=== PATIENT | female | born 1995 | race Caucasian/White ===

== ENCOUNTER 2022-11-29 04:46 | Inpatient (IN) | payer OTHER, SELFPAY ==
[2022-11-29] VITALS (164 sets, daily range): BP systolic 55–130; BP diastolic 21–98; PULSE 25–129; RESP 18; TEMP 35.9–36.6; O2SAT 78–100; BMI 34.5
[2022-11-29 06:10] LABS: Basophils Percent Auto 0.1 % (0.2-1.2); Eosinophils Absolute Auto 0.1 K/mm3 (0-0.3); Eosinophils Percent Auto 1.1 % (0-4.4); Hematocrit 32.9 % (37.0-47.0); Hemoglobin 10.7 g/dL (12.0-15.0); Immature Granulocyte Absolute 0.04 K/mm3 (0.00-0.031); Immature Granulocyte Percent A 0.4 % (0-0.5); Lymphocytes Absolute Auto 1.98 K/mm3 (0.9-3.2); Mean Corpuscular HGB Conc 32.5 g/dl (32-36); Mean Corpuscular Hemoglobin 27.9 pg (26-34); Mean Corpuscular Volume 85.9 fl (80-100); Mean Platelet Volume 9.7 fl (7.4-10.4); Monocytes Absolute Auto 0.6 K/mm3 (0.1-0.6); Monocytes Percent Auto 6.5 % (2.6-8.5); Neutrophils Absolute Auto 6.3 K/mm3 (1.3-6.7); Neutrophils Percent Auto 69.9 % (45.5-73.1); Platelet Count Result 244 k/mm3 (150-375); Red Blood Count 3.83 M/mm3 (4.2-5.4); Red Cell Distribution Width 13.2 % (11.5-14.5)
[2022-11-29] MEDS: OXYTOCIN 30 UNITS/NS 500 ML 30 UNITS/500 ML BAG IV CONT (06:24)
[2022-11-29] MEDS: LACTATED RINGERS 1,000 ML 125 ML IV CONT ×6 (06:24→16:09)
--- NOTE | 2022-11-29 06:54 | LDADM ---
This patient, Maylin Grey, was admitted to Labor/Delivery/Recovery 106 on 11/29/22 at 04:46. Plans for labor, pain management and were discussed with patient. Patient/family oriented to hospital policies and general routines including ID bracelet, bed and alarms, visiting hours, pain management, procedures, bathroom and other care routines, personal items, smoking policy, room service/diet and guest tray routines, security routines, and visiting hours. Patient/Family are encouraged to report perceived risks to care and to ask questions if they do not understand what they are told or what they should do. See OBIX for further documentation.
[2022-11-29 07:06] LABS: Rubella IgG Antibody 30.3 IU/ML
[2022-11-29 07:07] LABS: HIV 1/2 Ab P24 Ag Result Negative (Negative)
[2022-11-29 07:11] LABS: Hepatitis B Surface Antigen Negative (Negative)
--- NOTE | 2022-11-29 07:41 | WPDOBADMIT ---
Obstetrics - Admit Note Admission Note: record reviewed. No pertinent additions to the history and/or any subsequent changes in the physical findings that are not consistent with the expected course of the were found. limited care, IOL, SVE 250/-2 arom moderate amount of clear odorless fluid, anticipate vaginal delivery Additions to the history and/or subsequent changes in the physical findings follow. None.
--- NOTE | 2022-11-29 11:17 | WPDANESEPPF ---
Anes - Initial Pre Proc Eval Date/Time: 11/29/22 11:17 Surgeon: Sara Alvarez MD Pre Op Diagnosis: IOL Patient Data Age: 27 Gender: F Height: 1.7 m Weight: 100 kg Last Vital Signs Pulse 76 11/29/22 11:16 BP 116/97 H 11/29/22 11:16 Pulse Ox 100 11/29/22 11:13 O2 Del Method Room Air 11/29/22 06:54 Allergies Allergy/AdvReac Type Severity Reaction Status Date / Time No Known Allergies Allergy Verified 11/29/22 07:07 Laboratory Tests 11/29/22 11/29/22 11/29/22 06:02 06:02 06:02 WBC 9.0 K/mm3 K/mm3 (4.5-10.0) RBC 3.83 M/mm3 L M/mm3 (4.2-5.4) Hgb 10.7 g/dL L g/dL (12.0-15.0) Hct 32.9 % L % (37.0-47.0) MCV 85.9 fl fl (80-100) MCH 27.9 pg pg (26-34) MCHC 32.5 g/dl g/dl (32-36) RDW 13.2 % % (11.5-14.5) Plt Count 244 k/mm3 k/mm3 (150-375) MPV 9.7 fl fl (7.4-10.4) Immature Gran % (Auto) 0.4 % % (0-0.5) Neut % (Auto) 69.9 % % (45.5-73.1) Lymph % (Auto) 22.0 % % (18.3-44.2) Randall % (Auto) 6.5 % % (2.6-8.5) Eos % (Auto) 1.1 % % (0-4.4) Baso % (Auto) 0.1 % L % (0.2-1.2) Lymph # (Auto) 1.98 K/mm3 K/mm3 (0.9-3.2) Randall # (Auto) 0.6 K/mm3 K/mm3 (0.1-0.6) Eos # (Auto) 0.1 K/mm3 K/mm3 (0-0.3) Baso # (Auto) 0.0 K/mm3 K/mm3 (0.0-0.1) Abs Immat Gran (auto) 0.04 K/mm3 H K/mm3 (0.00-0.031) Absolute Neuts (auto) 6.3 K/mm3 K/mm3 (1.3-6.7) Absolute Nucleated RBC 0.0 K/mm3 K/mm3 (0.0-0.012) Nucleated RBC % 0.0 % % (0.0-0.2) RPR Pending Hep Bs Antigen HIV 1&2 Ab/P24 Ag 4thGn Negative (Negative) Rubella IgG Antibody Blood Type Antibody Screen 11/29/22 11/29/22 11/29/22 06:02 06:02 06:02 WBC RBC Hgb Hct MCV MCH MCHC RDW Plt Count MPV Immature Gran % (Auto) Neut % (Auto) Lymph % (Auto) Randall % (Auto) Eos % (Auto) Baso % (Auto) Lymph # (Auto) Randall # (Auto) Eos # (Auto) Baso # (Auto) Abs Immat Gran (auto) Absolute Neuts (auto) Absolute Nucleated RBC Nucleated RBC % RPR Hep Bs Antigen Negative (Negative) HIV 1&2 Ab/P24 Ag 4thGn Rubella IgG Antibody 30.3 IU/ML IU/ML (10 - ) Blood Type O Positive Antibody Screen Negative Patient hx anesthesia problems: none Family hx anesthesia problems: none Results Review: All pre-operative results and documents have been reviewed as part of the pre-operative evaluation. [facility] Social History Social History Years smoked: 8 Smoking status: Current every day smoker Tobacco type: cigarettes Second hand tobacco smoke exposure: Yes Substance use: current Other substance usage details: few weeks Lack of Transportation: YES Lack of Food: Never True Current Housing: I Have Housing Concerned About Future Housing: No Difficulty Paying Gas/Electric Bills: No Difficulty Paying for Meds: No Currently Unemployed: YES Education: High School Diploma/GED Difficulty w/ Childcare or Family Care: No Spiritual care concerns: No Anes - Eval Final PreProcedure Day of Procedure 11/29/22 11:17 Patient weight: obese Heart: regular rate and rhythm Lungs: clear to auscultation and normal air movement Airway: Mallampati scale class II Neurological: alert and oriented Last oral intake: >/= 8 hours ASA classification: II Emergent: no Anesthetic plan: proceed Anesthesia type and monitoring: regional epidural Results Review: All pre-operative r
[2022-11-29] MEDS: ONDANSETRON INJ 4 MG/2 ML VIAL IV PUSH ×2 (11:42→19:03)
[2022-11-29] MEDS: PHENYLEPHRINE 1,000 MCG/10 ML SYRINGE 100 MCG IV PUSH ×9 (11:51→13:14)
[2022-11-29] MEDS: ePHEDrine sulfate INJ 50 MG/ML AMPUL IV PUSH ×3 (12:14→13:14)
[2022-11-29 14:32] LABS: Rapid Plasma Reagin Non-Reactive (NonReactive)
--- NOTE | 2022-11-29 17:32 | PM.OBPRVD ---
OB - Delivery Note Procedure Delivery date: 11/29/22 Procedure: Events: Other (limited care) Induction method: AROM Delivery augmentation: Pitocin Delivery monitor: External FHT and Internal Uterine Route of delivery: Laceration Description: None Specimen: Yes Quantitative Blood Loss (ml): 35 Anesthesia type: Epidural Disposition: Floor Narrative: mom and baby stable and doing skin to skin [place] Baby Date of : 11/29/22 Time of : 17:24 Weeks of gestation at delivery: 39 gender: Female Weight (pounds): 6 Weight (ounces): 15 presentation: vertex position: Left Occiput Anterior Placenta delivery description: Spontaneous Cord Vessel Description: 3 Vessels, Nuchal Cord, Reduced and Delayed Cord Clamping
[2022-11-29] MEDS: OXYTOCIN 30 UNITS/NS 500 ML 30 UNITS/500 ML BAG 125 UNITS IV CONT (17:50)
[2022-11-29] MEDS: COSYNTROPIN 0.25 MG/ML VIAL 0.75 MG IV PUSH (17:59)
[2022-11-30] VITALS (7 sets, daily range): BP systolic 98–122; BP diastolic 57–88; PULSE 64–70; RESP 16–18; TEMP 36.4–37.4; O2SAT 100
[2022-11-30] MEDS: IBUPROFEN 600 MG TABLET PO ×2 (02:55→12:45)
[2022-11-30 04:51] LABS: Hematocrit 30.3 % (37.0-47.0); Hemoglobin 9.9 g/dL (12.0-15.0)
[2022-11-30] MEDS: DOCUSATE SODIUM 100 MG CAPSULE PO ×2 (07:15→23:46)
[2022-11-30] MEDS: MULTIVIT/MIN/PREN/FOL AC/IRON TABLET 1 TAB PO (07:15)
[2022-11-30] MEDS: ACETAMINOPHEN 325 MG TABLET 650 MG PO (07:15)
[2022-11-30] MEDS: POLYSACCHARIDE IRON COMPLEX 150 MG CAPSULE PO ×2 (07:15→23:46)
--- NOTE | 2022-11-30 08:24 | PM.OBPNVD ---
OB - PN: Subj Subjective Date/time seen: 11/30/22 08:24 Patient comments: no complaints baby status: doing well OB - PN: Obj Data Labs 11/30/22 02:52 Labs: Laboratory Results - last 24 hr 11/29/22 11/30/22 06:02 02:52 Hgb 9.9 L Hct 30.3 L RPR Non-reactive OB - PN A/P Plan day: 1 Plan: routine care Time Spent With Patient Time: Total time spent is greater than 50% in coordination of care (as documented) at patient's floor/unit and/or counseling patient: Time with patient: less than 15 minutes Review of Systems Review of Systems: All systems reviewed & are unremarkable except as noted in HPI and below Exam Narrative: Fundus firm and vaginal flow controlled. No lower ext redness, warmth, or edema. Negative homans. Const: General: comfortable Chest: Breast/axilla inspection: normal inspection of the breasts Resp: Effort & Inspection: normal respiratory effort Cardio: Rate: regular rate GI: GI Palp: Yes Soft to palpation Psych: Appearance: grossly normal Affect: normal affect Attitude: cooperative Thought content: Yes Normal thought content present Judgement: Good judgement present (Psych)
--- NOTE | 2022-11-30 09:58 | WPDANLDPN2 ---
Anes-Prog Note L&D Date/Time: 11/30/22 09:58 Comfortable throughout: labor and delivery Neuraxial method: spinal (intrathecal catheter placement ) Epidural/Spinal procedure site: clean & non-tender Neuro status: Neuro function grossly intact. Cardiovascular status: normal Respiratory status: normal Airway patency: baseline Mental status: baseline Post-Op hydration status: normal Vital Signs: Last Vital Signs Temp 37.4 C 11/30/22 08:05 Pulse 64 11/30/22 08:05 Resp 16 11/30/22 08:05 BP 98/57 L 11/30/22 08:05 Pulse Ox 100 11/30/22 08:05 O2 Del Method Room Air 11/29/22 21:00 Pain score (VAS): 2/10 I/O: Intake & Output 11/29/22 11/30/22 11/30/22 23:59 07:59 15:59 Intake Total 1000 Output Total 150 Balance 850 Post-procedural complaints: none Patient feedback: Patient satisfied with anesthetic care. No complaints of a headache this morning or any other complications.
--- NOTE | 2022-11-30 16:58 | PCCCNOTE ---
Addendum entered by KIM Gregorio 12/01/22 08:18: Spoke with DCFS Stephani at [phone] who reports DCFS will be taking protective custody of baby today. Baby to be placed with baby's paternal grandmother. DCFS Stephani is aware baby is ready for discharge today and Stephani reports is on her way to [facility]. RN Sheridan aware. Original Note: Recvd consult regarding open DCFS case, Housing issues, and Marijuana use. Met with pt. (ph: [phone] or [phone]) and FOCrystal Gomez (ph: [phone]) at bedside. Pt. reports she and Sathya will be living at Sathya' sister Marta Hidalgo's house at [address], in [place], and under the impression she will get to discharge with and to live at [facility] with them as well. Pt. was not drug screened upon admission and denies drug use during . Baby's umbilical drug screen is pending. Pt. states the housing issues stem from she and her five children(ages: 1.5, 3, 4, 5, and 6 years old) being evicted from [address] [address] [facility] in [place] on 10/25/22 due to landlord stating occupancy laws not being followed. Pt. explains this as too many children in the size of apartment she had. Pt. reports she asked her mother to take care of her five children. Pt. states that her mother was unable to provide care for all five children and due to pt. not having safe housing for all her children, pt. reports her mother called DCFS and made a report of neglect. Pt. reports DCFS took custody of all five children and she is under the impression that once she obtains safe housing for all six children, and obtain source of employment, pt. will be granted custody of her children again. Pt. reports she is on the public housing list for [facility], and [place]. Pt. reports she has been current with [facility] in [place] - disease case manager rn Tyson Acosta (ph: [phone]) since June 2022. Tyson brown has been working with pt. and providing services and baby supplies for pt., including dropping off a car seat today, at [facility]. Tyson aquino has been assisting with pt. getting established with [facility] [employer] [place], as well. Pt's open DCFS case is assigned to [facility] compliance investigator Stephani Mcgill (ph: [phone]). [facility] who states has completed a home visit of Marta's apartment, today, where pt. and would be discharging to. ALIZA Styles reports no indication of any baby supplies at the residence or household baby-prepped . Pt. has reported to that she has all necessary supplies for new baby. Stephani aware of this and reports will meet with pt. and MARK Mcdonnell at pt's bedside this afternoon. Pt. reports she has not had any involvement with [facility], prior to the open DCFS case currently. Pt. also reports her oldest five children's Father, has been incarcerated at [facility] halfway in [facility], since May 2022 and isn't expected to be released until 2023, per pt. Message left with [facility](ph: [phone]), and TAMIKA Swartz requesting update when available. [facility] aware pt. and baby possibly ready for discharge tomorrow 12/01/22. [facility] report made online - .
--- NOTE | 2022-12-01 07:37 | PM.OBPNVD ---
OB - PN: Subj Subjective Date/time seen: 12/01/22 07:37 s/p vaginal delivery day 2 OB - PN: Obj Data Labs 11/30/22 02:52 OB - PN A/P Plan day: 2 Plan: routine care and discharge home Time Spent With Patient Time: Total time spent is greater than 50% in coordination of care (as documented) at patient's floor/unit and/or counseling patient: Review of Systems Review of Systems: All systems reviewed & are unremarkable except as noted in HPI and below Exam Const: General: cooperative, healthy appearing and comfortable
--- NOTE | 2022-12-01 07:39 | P.DS_ITS ---
DS: Admitting Diagnosis Discharge Date 12/01/22 Admitting Diagnosis IOL DS: Discharge Diagnosis Discharge Diagnosis (1) Vaginal delivery: Code(s): O80 - Encounter for full-term uncomplicated delivery Status: Acute OB - DS: Summary OB Procedures : None OB Procedures Intrapartum: Spontaneous Vag Delivery OB Procedures: : None Time Spent with Patient Time attestation: Total time spent providing and/or coordinating discharge services: DS: Data Data Completed and Pending Pending studies at discharge: Pending at discharge 11/29/22 17:30 Surgical [PTH] Routine Discharge Plan Discharge Attending physician on discharge: Sara Alvarez Discharging Clinician: Miranda Caballero Patient Disposition: Home, Self-Care Activity: pelvic rest Diet: regular Patient Instructions: Antibiotic Form Stand Alone Forms: General Discharge Information Follow-up/Referrals: Miranda Caballero CNM [Certified Nurse Career And Technology Education Teacher] - 4 Weeks Discharge Medications: New ibuprofen 600 mg Tablet 600 mg PO Q6H PRN (Reason: Cramping) Qty: 30 0RF Date of admission: 11/29/22 04:46 Primary Care Provider: PHYSICIAN,EXPERIMENTAL MECHANIC [employer] Admitting Provider: Sara Alvarez Attending physician on admission: Sara Alvarez Condition: Stable
[2022-12-01 08:30] VITALS: PULSE 66; RESP 16; O2SAT 100
[2022-12-01 08:35] VITALS: BP 115/68; PULSE 79; RESP 16; TEMP 36.8; O2SAT 99
[2022-12-01] MEDS: POLYSACCHARIDE IRON COMPLEX 150 MG CAPSULE PO (09:30)
[2022-12-01] MEDS: DOCUSATE SODIUM 100 MG CAPSULE PO (09:30)
[2022-12-01] MEDS: MULTIVIT/MIN/PREN/FOL AC/IRON TABLET 1 TAB PO (09:30)
[2022-12-01] MEDS: BENZOCAINE 20% AER SPR (*SP) 56 GM CAN 1 SPRAY TOPICAL (09:30)
[2022-12-01] MEDS: WITCH HAZEL 40 PADS 1 PAD TOPICAL (09:30)
[2022-12-01] MEDS: IBUPROFEN 600 MG TABLET PO (09:30)
--- NOTE | 2022-12-01 13:07 | PC.NURSE ---
1052 Pt discharged,staying with significant other's family. taken into protective custody by DCFS. Pt angry at beginning of shift, emotional support given. Pt made several phone calls to various DCFS workers. At discharge, patient was relaxed and making comments, I'm gonna do what it takes to get my baby back. Seemingly appropriate interaction with staff and DCFS worker.
== END 2022-12-01 10:52 | disposition home or self-care (01) | DRG 560 ==
LOC: ANHLDR 05:30 → ANHOB2 21:02
PROVIDERS: Admitting Provider Obstetrics & Gynecology; Referring Provider Advanced Practice Midwife; Visit Provider Obstetrics & Gynecology
DX: O99.334 Smoking (tobacco) complicating childbirth (principal); F17.210 Nicotine dependence, cigarettes, uncomplicated; Z3A.39 39 weeks gestation of pregnancy; Z37.0 Single live birth
CPT/HCPCS: 36415; 85014; 85018; 85025; 86592; 86703; 86762; 86850; 86900; 86901; 87340; 88307; A9270; G0432; J0834; J2370; J2405; J2590; J2795; J7120

== ENCOUNTER 2023-02-12 16:21 | Emergency (ER) | payer OTHER, SELFPAY ==
[2023-02-12 16:32] VITALS: BP 111/64; PULSE 84; RESP 18; TEMP 36.3; O2SAT 100
--- NOTE | 2023-02-12 17:11 | ED.EAR ---
HPI - Ear Problem General Chief complaint: Ear Stated complaint: Nausea,Headache,Rt Ear Irritation,Vomiting Time Seen by Provider: 02/12/23 16:24 Source: patient Mode of arrival: ambulatory Limitations: no limitations History of Present Illness HPI Narrative: 27-year-old female presents to [facility] with complaints of right ear pain with pain radiating down the right side of her throat for the past 2 weeks. Patient reports that she used a Q-tip and toilet paper to her right ear and is concerned she could have a piece of toilet paper stuck in her ear. Patient reports that she also has had fatigue and nausea at times. Patient denies fever, body aches, chills, nausea, vomiting or diarrhea. Patient denies ear drainage. Patient reports that she is also concerned about a vaginal yeast infection she has had white colored discharge and itching. Patient denies concern for STDs. Patient denies concern for MD Complaint: ear pain Location: right ear Duration: constant Relieving factors: nothing Exacerbating factors: nothing Discharge from ear: Reports no Related Data Allergies Allergy/AdvReac Type Severity Reaction Status Date / Time No Known Allergies Allergy Verified 11/29/22 07:07 Review of Systems Constitutional: Constitutional: Reports chills, Reports fatigue, Denies fever(s) and Denies weakness ENT: Denies dizziness, Denies epistaxis, Denies nasal congestion and Denies sore throat Comments: Right ear pain Respiratory: Respiratory: Denies cough, Denies dyspnea and Denies wheezing Gastrointestinal: Gastrointestinal: Denies diarrhea, Denies nausea and Denies vomiting Integumentary/Breasts: Skin/Breast: Denies rash Neurologic: Denies syncope and Denies headache(s) [facility] Social History Social History Years smoked: 8 Smoking status: Current every day smoker Tobacco type: cigarettes Second hand tobacco smoke exposure: Yes Substance use: current Other substance usage details: few weeks Lack of Transportation: YES Lack of Food: Never True Current Housing: I Have Housing Concerned About Future Housing: No Difficulty Paying Gas/Electric Bills: No Difficulty Paying for Meds: No Currently Unemployed: YES Education: High School Diploma/GED Difficulty w/ Childcare or Family Care: No Spiritual care concerns: No Comments At time of signature, I agree with nursing past medical, surgical, social and family history. There is no relevant family history pertinent to the presenting complaint. Exam Const: General: healthy appearing Nutritional Appearance: well nourished Orientation/consciousness: patient oriented x3 Limitations: no limitations HENMT: Head: normal to inspection Ears: Abnormal EAC present erythema on the right, edema on the right and EAC tenderness on the right and TM abnormal dull on the right Face/Nose/Sinus: Normal external nose present Face and sinus: normal facial exam Mouth: Yes moist mucous membranes Throat: posterior oropharynx normal and uvula midline Eyes: Conjunctivae: conjunctivae normal Neck: Neck: normal visual inspection Chest: Chest palpation & inspection: normal inspection of the chest Resp: Effort & Inspection: normal respiratory effort and not labored Auscultation: clear to auscultation bilaterally, no crackles, no rales, no rhonchi and no wheezes Cardio: Rate: regular rate Rhythm: regular rhythm Heart sounds: no murmurs Skin: General skin exam: normal color Rashes: no rashes Wounds: no wounds Neuro: General: patient oriented x3 Speech: normal speech Gait exam (Neuro): Normal gait present Psych: Affect: normal affect Attitude: cooperative Course Course Level of Care: Express Care Visit Vital Signs Vital signs: Vital Signs Temperature 36.3 C L 02/12/23 16:32 Pulse Rate 84 02/12/23 16:32 Respiratory Rate 18 02/12/23 16:32 Blood Pressure 111/64 02/12/23 16:32 Pul
== END 2023-02-12 17:26 | disposition home or self-care (01) ==
PROVIDERS: Emergency Provider Nurse Practitioner Family
DX: H60.90 Unspecified otitis externa, unspecified ear (principal); H66.90 Otitis media, unspecified, unspecified ear; B37.31 Acute candidiasis of vulva and vagina; F17.210 Nicotine dependence, cigarettes, uncomplicated; Z20.822 Contact with and (suspected) exposure to COVID-19
CPT/HCPCS: 87426; 99213; C9803; G0463

== ENCOUNTER 2023-04-17 16:15 | Emergency (ER) | payer OTHER, SELFPAY ==
[2023-04-17 16:45] VITALS: BP 129/71; PULSE 98; RESP 16; TEMP 36.4; O2SAT 99
== END 2023-04-17 17:26 | disposition left against medical advice (07) ==
LOC: ANHED 18:40
DX: R51.9 Headache, unspecified (principal)
CPT/HCPCS: 99199